=== PATIENT | male | born 1955 | race Caucasian/White ===

== ENCOUNTER → 2016-09-05 | Outpatient (CLI) | payer OTHER ==
[~2016-09-05] MED LIST: ASPI81TA28 PO; HYDR-5688 PO; IBUP-103 PO
[2016-09-05 10:31] LABS: URINE APPEARANCE CLEAR (CLEAR); URINE BILIRUBIN NEG (NEG); URINE COLOR YELLOW; URINE EPITHELIAL CELL AUTO 0-5 /lpf (0-5); URINE NITRITE NEG (NEG); URINE PH 6.5 (4.5-7.5); URINE SPECIFIC GRAVITY 1.023 (1.000-1.030); UROBILINOGEN NEG (NEG); ZZUR CULT IF INDIC CLEAN CATCH NO
[2016-09-05 10:34] LABS: MANUAL MICROSCOPIC REQUIRED? NO; REVIEW REQ? NO
== END | disposition home or self-care (01) ==
LOC: C.LABSPEC 10:20
PROVIDERS: ATTEND Family Medicine
DX: R39.9 Unspecified symptoms and signs involving the genitourinary system (principal)

== ENCOUNTER → 2016-09-27 | Outpatient (CLI) | payer OTHER ==
[2016-09-27 10:17] LABS: ESTIMATED AVERAGE GLUCOSE 120 mg/dl; HA1C FLAG Normal (Normal)
== END | disposition home or self-care (01) ==
LOC: C.LAB1850 07:42
PROVIDERS: ATTEND Internal Medicine
DX: Z13.29 Encounter for screening for other suspected endocrine disorder (principal); R73.03 Prediabetes; N52.9 Male erectile dysfunction, unspecified; R35.0 Frequency of micturition

== ENCOUNTER → 2017-08-11 | Outpatient (CLI) | payer OTHER ==
--- NOTE | 2017-08-11 09:38 | DIAGNOSTIC IMAGING REPORT ---
LEFT KNEE INCLUDING BILATERAL STANDING AP VIEWS (4 views) CLINICAL HISTORY: Left knee pain status post trauma COMPARISON: 09/16/2014 DISCUSSION: Bilateral standing AP views reveal advanced osteoarthritic changes involving the right knee with multiple loose bodies. The findings appear slightly progressive. On the left, there are no acute fractures. There are mild osteoarthritic changes present. There is a small dorsal patellar spur. There is mild narrowing medial joint compartment. There is subchondral sclerotic changes present within the medial femoral condyle likely on a degenerative basis, or secondary to a prior osteochondral injury. There is a small joint effusion. IMPRESSION: 1. Progressive advanced osteoarthritic changes involving the right knee 2. Small left knee joint effusion. Subtle sclerosis involving the subarticular surface of the medial femoral condyle. This could be on a degenerative basis or secondary to a prior osteochondral injury. 3. Mild osteoarthritic changes of the left knee. Electronically signed by: Jorge Bravo M.D. 08/11/2017 9:37 AM Dictated Date/Time: 08/11/2017 9:32 AM
== END | disposition home or self-care (01) ==
LOC: C.RDSM 09:25
PROVIDERS: ATTEND Internal Medicine
DX: M17.0 Bilateral primary osteoarthritis of knee (principal); M25.462 Effusion, left knee

== ENCOUNTER 2020-05-26 07:02 | Observation (INO) ==
[2020-05-26] MEDS ORDERED: NiCARDipine HCL INJ 2.5 MG/ML 10 ML AMP ONE (07:39)
[2020-05-26] MEDS ORDERED: HEPARIN (PORCINE) 1000 UNIT/ML 10 ML (CATH LAB USE ONLY) ONE ×2 (07:39→09:22)
[2020-05-26] MEDS ORDERED: fentaNYL citrate 100 MCG/2 ML VIAL ONE ×3 (07:40→09:45)
[2020-05-26] MEDS ORDERED: MIDAZOLAM HCL 1 MG/ML 2ML VIAL ONE ×5 (07:40→09:56)
[2020-05-26] MEDS ORDERED: NITROGLYCERIN/D5W 100MCG/ML 20ML SYR ONE (07:41)
[2020-05-26 07:49] LABS: Basophils # (auto) 0.02 K/uL (0-0.2); Basophils % (auto) 0.2 %; Eosinophils # (auto) 0.22 K/uL (0-0.5); Eosinophils % (auto) 2.4 %; Hematocrit (blood only) 51.2 % (42-52); Hemoglobin 17.6 g/dL (14.0-18.0); Immature Granulocytes # (auto) 0.03 K/uL (0.00-0.02); Immature Granulocytes % (auto) 0.3 %; Lymphocytes # (auto) 3.49 K/uL (1.2-3.4); Lymphocytes % (auto) 37.7 %; Mean Corpuscular Hemoglobin 30.4 pg (25-34); Mean Corpuscular Hgb Conc 34.4 g/dL (32-36); Mean Corpuscular Volume 88.6 fL (80-100); Mean Platelet Volume 11.1 fL (7.4-10.4); Monocytes % (auto) 8.6 %; Neutrophils % (auto) 50.8 %; Platelet Count 234 K/uL (130-400); RDW Coefficient of Variation 13.7 % (11.5-14.5); RDW Standard Deviation 44.4 fL (36.4-46.3); Red Blood Count 5.78 M/uL (4.7-6.1); White Blood Count 9.26 K/uL (4.8-10.8)
[2020-05-26] MEDS ORDERED: ASPIRIN 81 MG CHEW ONE (07:50)
--- NOTE | 2020-05-26 07:54 | History & Physical Bridge Note ---
Date of Service May 26, 2020 History & Physical Bridge Note I have examined the patient, reviewed the History & Physical and in the interval since the performance of the History & Physical I have noted the following changes of clinical significance: no changes noted
--- NOTE | 2020-05-26 07:55 | Pre Anesthesia Assessment ---
Date of Service May 26, 2020 Pre Sedation Assessment Vital Signs Temp Pulse Resp BP Pulse Ox 05/26/20 07:26 36.9 C 90 16 175/109 H 96 Cardiovascular RRR, no murmur, no edema Respiratory normal respiratory effort, lungs clear to auscultation Pre-Sedation Airway Assessment Smoking Status: Current every day smoker Hx Sleep Apnea: No Short, Thick Neck: No Thyromental Distance: > or= 3.5 Finger Breadths Oral Cavity: + Loose Teeth and + Chipped Teeth Mallampati Class: I ASA: ASA3 NPO Status Date of Last Intake of Fluids: 05/25/20 Time of Last Intake of Fluids: 20:00 Date of Last Intake of Solid Food: 05/25/20 Time of Last Intake of Solid Foods: 20:00 Procedure Planning Contraindications for Sedation: none Current Medications Reviewed: Yes Notes The planned sedation has been discussed with the patient. Informed Consent was obtained. I have identified the patient, determined the appropriateness of sedation and have assessed the patient immediately prior to the procedure. All medicine(s) and interventions are by my order.
[2020-05-26 08:01] LABS: Prothrombin Time 10.3 Seconds (9.0-12.0)
[2020-05-26 08:10] LABS: BUN Creatinine Ratio 24.6 (10-20); Calcium 9.9 mg/dl (8.5-10.1); Creatinine Clr Calc Pharmacy 101.9 ml/min; Est GFR (African American) 94.2; Est GFR (Non-African American) 81.3; Potassium 4.1 mmol/L (3.5-5.1)
[2020-05-26] MEDS ORDERED: NITROGLYCERIN/D5W 100 MCG/ML BTL ONE (09:40)
[2020-05-26] MEDS ORDERED: METOPROLOL TARTRATE 1 MG/ML VIAL IV ONE (09:59)
--- NOTE | 2020-05-26 10:21 | Cardiac Catheterization ---
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 Cardiac Status Clinical evaluation leading to the procedure CAD Presenation: Stable angina Anginal Classification: CCS III Heart Failure: No Cardiogenic Shock within 24 Hours: No Cardiac Arrest within 24 Hours: No Imaging Studies Past 6 Months: No Stress Studies Past 6 Months: No Standard Exercise Test: No Stress Echocardiogram: No Stress Testing w/SPECT MPI: No Cardiac CTA: No Coronary Anatomy Dominant: Co-Dominant Left Ventricular Angiography EF (%): n/a Diagnostic Physicians Name: Mundo Cole MD Status: Elective Closure Device Percutaneous Entry Location: Radial Closure Device: Radial Band (after PCI) Recommendations: PCI without planned CABG Cardiac Cath Procedure Full Procedure Date May 26, 2020 Pre-Procedure Diagnosis Pre-Procedure Diagnosis: Angina AUC Score AUC Score: 7 Post-Procedure Diagnosis Post-Procedure Diagnosis: Severe CAD and Elevated Intracardiac Pressures Procedure(s) Performed Procedure(s) Performed: Coronary Angiography and Left Heart Cath Systems Programmer Mundo Cole MD Property Officer(s) Jaron Méndez Estimated Blood Loss Estimated Blood Loss: < 25 ml Medication(s) Medication(s): Fentanyl, Heparin, Lidocaine 1%, Nicardipine and Versed Summary of Findings Procedures: 1. Coronary angiography 2. Left heart catheterization 3. Moderate sedation Coronary angiography: 1. Left main coronary artery: LMCA is large in caliber. No significant CAD. 2. Left anterior descending: LAD is a large-caliber vessel that wraps around the apex. Proximal LAD 20%. Mid LAD 50% at bifurcation of small caliber D2. Late mid LAD 80 to 90%. Distal LAD 80 to 90%. There is a large caliber D1 originating from very proximal LAD versus ramus vessel. D1 proximal 70 to 80%. Medium to large caliber D1. CATHRYN-3 flow throughout. Left to right collaterals. 3. Circumflex: The circumflex is a large-caliber vessel. Codominant system. Mid circumflex 40 to 50%. Medium caliber OM1. Small to medium caliber OM 2 with 90% stenosis. Small caliber PL proximal 90%. Small circumflex PDA. 4. Right coronary artery: Codominant. RCA is medium in caliber. Proximal RCA 95+% stenosis. Small PDA and PL. Left heart catheterization: 1. Left ventriculography was not performed. 2. No aortic stenosis. 3. Elevated LVEDP; 21 mmHg. Moderate sedation: 1. Sedation start time: 8:34 AM 2. Sedation end time: 9:12 AM Right radial artery angiography: 1. The right radial artery was tortuous. Glidewire was successfully used to maneuver through the radial artery into the central circulation. Impression: 1. Severe CAD, including mid and distal LAD, medium caliber codominant RCA, and D1. 2. Other significant lesions were in smaller caliber vessels. 3. Left to right collaterals. 4. Moderately elevated left-sided filling pressure. 5. No significant aortic stenosis. Plan: 1. Images were reviewed with Dr. Saldaña of interventional cardiology. He plans on attempting PCI of LAD with consideration of PCI attempt of RCA. Branch vessel CAD likely to be treated with medical therapy, as some of these vessels are smaller in caliber. 2. Optimize medical therapy. 2. Hemodynamics Rest Ao:: 146/89 Final Ao: 158/97 LV: 147/02/12 Recommendations Recommendations: PCI without planned CABG Specimens Specimens: None Radiation Exposure (mGy) 1162 mGy. Fluoro time 9.2 min. Contrast (mls) 50 ml Procedural Complication(s) None Disposition remains in lab pack chemist for PCI attempt I attest to the content of the Intraoperative Record and any orders documented therein. Any exceptions are noted below. [facility] Card Cath Procedure Codes Cardiac Catheterization Procedure 1: Cardiovascular Cath Procedures: 66568 Coronaries and LHC (+/-LV) Moderate Sedation Procedure 1: Sedation/Anesthesia: 17495 Mod Sedation by the same physician;Init15 Min Child Age 5 & Up Procedure 2: Sedation/Anesthesia: 16025 Mod Sedation by the same physician; Ea [id number] Minutes PG Care Time/CCT Total # of Minutes Spent Total Time Spent with Patient: Total time spent is greater than 50% in coordination of care (as documented) at patient's floor/unit and/or counseling patient:
[2020-05-26] MEDS ORDERED: CLOPIDOGREL BISULFATE 300 MG TAB ONE (11:06)
[2020-05-26] MEDS ORDERED: ACETAMINOPHEN 325 MG TAB PO PRN (11:21)
[2020-05-26] MEDS ORDERED: NITROGLYCERIN SL 0.4 MG/TAB TAB SL PRN (11:23)
[2020-05-26] MEDS ORDERED: SODIUM CHLORIDE 0.9% 1000ML 1,000 ML IV SCH (11:30)
[2020-05-26] MEDS ORDERED: HYDROCODONE/ACETAMOPHEN 5/325MG TAB PO PRN (11:57)
--- NOTE | 2020-05-26 13:01 | Cardiac Catheterization ---
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 Cardiac Status Clinical evaluation leading to the procedure CAD Presenation: Unstable angina Anginal Classification: CCS III Heart Failure: No Cardiogenic Shock within 24 Hours: No Cardiac Arrest within 24 Hours: No Imaging Studies Past 6 Months: Yes Stress Studies Past 6 Months: Yes Stress Echocardiogram: Yes - Negative Diagnostic Physicians Name: Young Saldaña MD Status: Elective Closure Device Percutaneous Entry Location: Radial Closure Device: Radial Band Recommendations: PCI without planned CABG PCI Indication: Unstable Angina Lesion Segment Name: mid LAD Culprit Artery: Yes Stenosis Prior to Rx (%): 95 Chronic Total Occlusion: No IVUS: Yes FFR: No Pre-Procedure CATHRYN Flow: 2 Previously Treated Lesion: No Lesion Complexity: Non-High/Non-C Lesion Length (mm): 22 Thrombus Present: No Bifurcation Lesion: No Guidewire Across Lesion: Stenosis Post-Procedure (%): 0 Post-Procedure CATHRYN Flow: 3 Devices(s) Deployed: Yes Yes Lesion #2 Segment Name: early-mid LAD Culprit Artery: Yes Stenosis Prior to Rx (%): 80 Chronic Total Occlusion: No IVUS: Yes FFR: No Pre-Procedure CATHRYN Flow: 3 Previously Treated Lesion: No Lesion Complexity: Non-High/Non-C Lesion Length (mm): 15 Thrombus Present: No Bifurcation Lesion: Yes Guidewire Across Lesion: Yes Stenosis Post-Procedure (%): 0 Post-Procedure CATHRYN Flow: 3 Devices(s) Deployed: Yes Intraprocedure Events Significant Disection: No Perforation: No Cardiac Cath Procedure Full Procedure Date May 26, 2020 Pre-Procedure Diagnosis Pre-Procedure Diagnosis: Angina AUC Score AUC Score: 7 Post-Procedure Diagnosis Post-Procedure Diagnosis: Severe CAD and Successful PCI Procedure(s) Performed Procedure(s) Performed: Coronary Angiography, Drug Eluting Stent and IVUS Pipe Recovery Specialist Young Saldaña MD Psychology Physician(s) Jaron Méndez Estimated Blood Loss Estimated Blood Loss: < 25 ml Medication(s) Medication(s): Clopidogrel, Fentanyl, Heparin, Lidocaine 1%, Nicardipine, Nitroglycerin and Versed Medication(s): lopressor Summary of Findings Indication: Accelerating angina Access: 6 Fr slender right radial artery Catheters: EBU 3.5 guide Findings: For full details of patient's coronary angiography please see cath report dictated by Dr. Cole. Briefly, patient found to have severe multivessel sequential severe mid LAD lesions. Decision to proceed with PCI. -- PCI -- Antithrombotic therapy: Heparin, clopidogrel Procedure: Left main cannulated with EBU 3.5 guide Attempted to cross latemid lesion with instrument and controls technician 50 wire. Attempts complicated by downstream LAD dissection, worsening chest pain, hypertension. Initiated on nitroglycerin infusion, given Lopressor. Eventually able to cross into the true lumen of distal vessel with long whisper wire. Intraluminal position confirmed via injection through OTW balloon Mid LAD dilated with 2.0 balloon. IVUS IVUS used to assess extent of disease. Severe moderately calcified disease in early-mid segment at take-off of 2nd diagonal. Late-mid LAD stented with 2.5 x 30 mm Raúl ASHLEY. Stent post-dilated with 3.5 NC balloon. Early-mid LAD lesion pre-dilated with 3.5 balloon. Proximal to mid LAD stented with 4.0 x 22 [place] ASHLEY. Stent post-dilated with 4.5 NC. Repeat IVUS showed well-expanded, well-apposed stents with no edge co mplications. IC vasodilators administered for spasm Moderate to severe distal disease to be managed with medicines. Post procedure CATHRYN 3 flow, stent well expanded with minimal residual stenosis a nd no apparent cardiac complications. Arterial Closure: TR Band Summary: 1. Successful PCI of proximal to mid LAD with 4.0 x 22 mm Latham drug-eluting stent (post-dilated with 4.5 NC). 2. Successful PCI of latemid LAD with 2.5 x 30 mm Raúl drug-eluting stent (postdilated with 3.5 NC). Recommendations: To PCU for continued monitoring Loaded with clopidogrel 600 mg in School Services Officer Continue dual-antiplatelet therapy for at least 6 months Continue statin, and ASCVD risk factor modification Consult cardiac Rehab Plan for staged PCI of proximal RCA in 2 to 3 weeks. Hemodynamics Rest Ao:: 157/89/117 Final Ao: 158/97/119 LV: -- Recommendations Recommendations: PCI without planned CABG Specimens Specimens: None Radiation Exposure (mGy) 6305 - patient counseled on signs/symptoms of radiation exposure Contrast (mls) 130 Drains Drains: none Anesthesia moderate Procedural Complication(s) None Disposition PCU I attest to the content of the Intraoperative Record and any orders documented therein. Any exceptions are noted below. [facility] Card Cath Procedure Codes Therapeutic Services & Ancillary Proc Procedure 1: Cardiovascular Tx and Anc Procedures: 89832 IV Ultrasound (Coronary or Graft) Moderate Sedation Procedure 1: Sedation/Anesthesia: 66066 Mod Sedation by the same physician; Ea [id number] Minutes Stenting Procedure 1: Cardiovascular Stent Procedures: 93852 Perc transcatheter placement of intracoronary stent(s), with ang PG Care Time/CCT Total # of Minutes Spent Total Time Spent with Patient: Total time spent is greater than 50% in coordination of care (as documented) at patient's floor/unit and/or counseling patient:
--- NOTE | 2020-05-26 23:18 | Electrocardiogram Report ---
Test Reason : Blood Pressure : / mmHG Vent. 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
[2020-05-27 05:44] LABS: Basophils # (auto) 0.01 K/uL (0-0.2); Basophils % (auto) 0.1 %; Eosinophils # (auto) 0.13 K/uL (0-0.5); Eosinophils % (auto) 1.1 %; Hematocrit (blood only) 45.8 % (42-52); Hemoglobin 16.3 g/dL (14.0-18.0); Immature Granulocytes # (auto) 0.03 K/uL (0.00-0.02); Immature Granulocytes % (auto) 0.3 %; Lymphocytes # (auto) 2.33 K/uL (1.2-3.4); Lymphocytes % (auto) 19.6 %; Mean Corpuscular Hemoglobin 31.1 pg (25-34); Mean Corpuscular Hgb Conc 35.6 g/dL (32-36); Mean Corpuscular Volume 87.4 fL (80-100); Mean Platelet Volume 10.9 fL (7.4-10.4); Monocytes # (auto) 0.84 K/uL (0.11-0.59); Monocytes % (auto) 7.1 %; Neutrophils # (auto) 8.52 K/uL (1.4-6.5); Neutrophils % (auto) 71.8 %; Platelet Count 197 K/uL (130-400); RDW Coefficient of Variation 13.5 % (11.5-14.5); RDW Standard Deviation 43.1 fL (36.4-46.3); Red Blood Count 5.24 M/uL (4.7-6.1); White Blood Count 11.86 K/uL (4.8-10.8)
[2020-05-27 06:12] LABS: BUN Creatinine Ratio 19.8 (10-20); Calcium 8.5 mg/dl (8.5-10.1); Creatinine Clr Calc Pharmacy 124.7 ml/min; Est GFR (Non-African American) 95.7; Potassium 3.6 mmol/L (3.5-5.1)
[2020-05-27] MEDS ORDERED: ROSUVASTATIN CALCIUM 10 MG TAB PO SCH (09:00)
[2020-05-27] MEDS ORDERED: CLOPIDOGREL BISULFATE 75 MG TAB PO SCH (09:00)
[2020-05-27] MEDS ORDERED: METOPROLOL SUCC 25MG EXT REL TAB PO SCH (09:00)
[2020-05-27] MEDS ORDERED: ASPIRIN 81 MG ECTAB PO SCH (09:00)
--- NOTE | 2020-05-27 10:07 | Discharge Summary ---
Date of Service May 27, 2020 Admission HPI Per Admitting Provider Patient with history of postprandial chest discomfort. Principal Diagnosis q Discharge Exam Evaluation of the right radial access site reveals a good radial pulse. Good perfusion of the right hand. No hematoma or bleeding. Chest clear with good air movement Cardiac examination systolic ejection murmur. Regular rhythm. Discharge Data Allergies Allergy/AdvReac Type Severity Reaction Status Date / Time Pzojhnc-Pjy-Biw Reductase Allergy Mild muscle Verified 05/26/20 07:50 Inhibitor aches Consultations 05/26/20 11:23 Consult Cardiac Rehabilitation Routine Procedures Performed Operation Date: 05/26/20 08:00 Actual Procedures p Cath, Left with Cors and Vent - Mundo Cole MD s Drug Eluting Stent SGl Vessel - Cornelius Saldaña MD s Cineradiography w/Routine Exam - Cornelius Saldaña MD s Fraction Flow Rozel SGL Ves - Cornelius Saldaña MD s IVUS Coronary Single Vessel - Cornelius Saldaña MD Ordered Studies 05/26/20 08:14 CL Cath Imgs for PACS use only Routine 05/26/20 14:34 CL IVUS Coronary Single Vessel Routine Hospital Course (1) Coronary artery disease: The day of admission the patient underwent coronary angiography via the right radial artery. This revealed disease in the mid to distal left anterior descending artery. There was branch vessel disease of up to 90% stenosis involving OM2 and a small posterolateral branch. There is a medium-size right coronary artery with severe proximal stenosis. The patient underwent PCI to the mid LAD with a 4.0 x 22 mm arnav ASHLEY The patient underwent PCI of the late LAD with a 2.5 x 30 mm arnav ASHLEY On the morning of discharge the patient had no discomfort at the access site. He had been ambulatory around his room and the stout after breakfast without recurrent symptoms of chest discomfort. He was advised of the importance of continuing dual anti-platelet therapy, not running out of medications or missing doses. He has not tolerated statin therapy and will be referred back to his primary manager play for discussion regarding additional anti-lipid options He has residual stenosis in the proximal RCA and there is a tentative plan for a staged intervention in 2-3 weeks Total Time Total Time Spent Total Time Spent (In Minutes): 30 Total Time Includes: Examination of the Patient, Discharge Planning and Medication Reconciliation Discharge Plan Discharge Items Patient Disposition: Home - Self-Care Reason For Visit: Chest Pain Discharge Diagnosis: Coronary artery disease and stent placement. Condition on Discharge: Good Activity: Per Instructions section Activity Comment: No vigorous use of right hand or wrist for 7 days Lifting: No more than 5 pounds Bathing: No limitations Driving/Machine Use: Resume 1 day after discharge Non-emergency contact: Revenue Cycle Consultant Call non-emergency contact if: you have any medication questions, your symptoms worsen, you have a fever, your wound has increased redness, your wound has increased drainage and your wound pain has increased Follow-up/Referrals: Mark Blum MD [Primary Care Provider] - Diet: Heart Healthy Addtl Attending Provider Instructions: ACTIVITY RECOMMENDATIONS: Excess manipulation of the wrist should be avoided for the next 24-48 hours. * No lifting over 2 pounds (approximately a 1/2 gallon of milk) with the utilized arm for 24 hours. * No strenuous activity such as bowling or tennis for 3 days. * Keep the site of the procedure covered with a bandage for 24 hours. *You may shower the day after the procedure. Do not take a tub bath or submerge the puncture site in water for the next 3 days. *Do not operate any motorized equipment for 3 days. SPECIAL CARE INSTRUCTIONS: The site may be slightly bruised and sore following your procedure. Should any of the following occur, contact the Dr. who performed your procedure. 1. Redness/inflammation, swelling, chills, or fever, or colored drainage at procedure site within 3-7 days after your procedure. 2. Coldness, discoloration, ongoing numbness, severe pain, or swelling. Expect mild tingling of hand and tenderness at the puncture site for up to three days. If this persists beyond three days, or other symptoms develop, notify the Dr. who performed your procedure. BLEEDING: If the procedure site on your wrist begins to bleed, do not panic 1. Place 1 or 2 fingers firmly just slightly above the insertion site to stop the bleeding. You may be able to feel your pulse as you hold pressure. 2. Lift your finger after 5 minutes to see if the bleeding has stopped. 3. Once the bleeding has stopped, gently wipe the wrist area clean with a bandage. * If the bleeding from your wrist does not stop after 10 minutes, or if there is a large amount of bleeding or spurting, call 911 (do not drive yourself to the hospital). SKIN IRRITATION: * You may experience some redness and/or swelling in the area where radiation was administered. If any skin irritation occurs, please contact your family physician. FOLLOW UP VISIT: 1. Follow up with Dr. Roy in 1-2 weeks. Pending Studies at Discharge: No Stand-Alone Forms: My [facility] Mobile, Smoking Cessation Medications and DC Order Prescriptions: New clopidogrel 75 mg Tablet 75 mg PO QAM Qty: 90 RF: 3 Continued aspirin 81 mg tablet,delayed release (DR/EC) 81 mg PO QAM RF: 0 hydrocodone-acetaminophen 5-325 mg tablet 1 tab PO Q6H PRN (Reason: pain) Qty: 120 RF: 0 naproxen 250 mg tablet 250 mg PO Q6 PRN (Reason: pain) RF: 0 tadalafil 20 mg tablet 20 mg PO DAILY PRN (Reason: sexual activity) Qty: 30 RF: 11 Hold Instructions: Niroglcerin use metoprolol succinate 25 mg tablet extended release 24 hr 25 mg PO DAILY Qty: 90 RF: 3 nitroglycerin 0.4 mg tablet, sublingual 0.4 mg sublingual Q5M PRN (Reason: chest pain) Qty: 30 RF: 0 Discharge Orders: Discharge Order (Routine); Ordered 05/27/20 Ordered By: Cornelius Araujo Admission Data Admit Date/Time: 05/26/20 11:16 Attending Provider: Mundo Cole Admit Provider: Cornelius Saldaña Primary Care Provider: Mark Blum Coding Level of Care Code D/C Day Management <30 mins Diagnoses Coronary artery disease I25.10
[2020-05-31] MEDS ORDERED: INFLUENZA ADMINISTRATION CHARGE ONE (09:00)
[2020-05-31] MEDS ORDERED: INFLUENZA VIRUS QUAD VACCINE 0.5 ML SYR IM ONE (09:00)
== END 2020-05-27 11:57 | disposition home or self-care (01) ==
LOC: 2E 07:02 → CC 07:02